=== PATIENT | female | born 1960 | race Caucasian/White ===

== ENCOUNTER 2016-05-05 14:00 | Emergency (ER) | payer MEDICAID ==
[~2016-05-05] VITALS: Ht 162.6 cm; Wt 57.2 kg
--- NOTE | 2016-05-05 14:00 | NUR ---
Patient was BIB [place] [employer] at this time.
[2016-05-05 14:04] VITALS: BP 155/94
--- NOTE | 2016-05-05 14:14 | NUR ---
Patient to bed 06.
--- NOTE | 2016-05-05 14:16 | NUR ---
DR. SUBRAMANIAN AT BEDSIDE
--- NOTE | 2016-05-05 14:17 | NUR ---
PREBOOK.WARRANT OF ARREST.NEED MEDICAL CLEARANCE.HX: HEP.C,ASTHMA . DENIES N/V/D; SKIN IS PINK/WARM/DRY; AAOX4 WITH EVEN AND STEADY GAIT; LUNGS CLEAR BL; HR EVEN AND REGULAR; PT DENIES ANY FEVER, CP, SOB, OR COUGH AT THIS TIME; PATIENT STATES PAIN OF 08/10 AT THIS TIME; PATIENT POSITIONED FOR COMFORT; HOB ELEVATED; BEDRAILS UP X2; BED DOWN.
--- NOTE | 2016-05-05 14:24 | NUR ---
PT VERBALIZED CAN I TALK TO THE DOCTOR AGAIN AND CHECK MY MOUTH, INFORMED DR. KELLY WANTS TO TALK TO HIM AGAIN.
--- NOTE | 2016-05-05 14:38 | NUR ---
PT BACK FROM XRAY VIA WHEELCHAIR, ASSISTED BY PD
[2016-05-05 15:08] VITALS: BP 155/94
--- NOTE | 2016-05-05 15:09 | NUR ---
Patient discharged with v/s stable. Written and verbal after care instructions given and explained. Patient verbalized understanding. Ambulatory with steady gait. All questions addressed prior to discharge. Advised to follow up with PMD.ASSISTED BY PD
== END 2016-05-05 15:09 ==
LOC: MED 14:13
DX: S20.211A Contusion of right front wall of thorax, initial encounter (principal); I10 Essential (primary) hypertension; F17.210 Nicotine dependence, cigarettes, uncomplicated; R19.7 Diarrhea, unspecified; R11.2 Nausea with vomiting, unspecified; J45.909 Unspecified asthma, uncomplicated; Z88.1 Allergy status to other antibiotic agents; X58.XXXA Exposure to other specified factors, initial encounter; Y93.89 Activity, other specified; Y92.89 Other specified places as the place of occurrence of the external cause; Y99.8 Other external cause status

== ENCOUNTER 2016-12-06 14:00 | Emergency (ER) | payer MEDICAID ==
[~2016-12-06] VITALS: Ht 160 cm; Wt 72.6 kg
--- NOTE | 2016-12-06 14:00 | NUR ---
Patient BIBA BLS, transferred to bed 4. RN evaluating patient at bedside.
--- NOTE | 2016-12-06 14:02 | NUR ---
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 NAD. WILL CONTINUE TO MONITOR.
[2016-12-06 14:06] VITALS: BP 142/94
--- NOTE | 2016-12-06 14:07 | NUR ---
Dr. Keen evaluating patient at bedside.
[2016-12-06] MEDS ORDERED: BACITRACIN OINT 500 UNITS/GM PKT TP ONE (14:10)
[2016-12-06] MEDS ORDERED: NACL 0.9% 2,000 ML IV ONE (14:10)
--- NOTE | 2016-12-06 14:54 | NUR ---
pt refused iv started; er md momin notified and aware
--- NOTE | 2016-12-06 15:09 | NUR ---
PT TO CT VIA RNEY ACCCOMPANIED BY CNC SERVICE ENGINEER
[2016-12-06 16:05] VITALS: BP 138/91
--- NOTE | 2016-12-06 16:05 | NUR ---
Patient discharged with v/s stable. Written and verbal after care instructions given and explained. Patient verbalized understanding. Pt given bus voucher and provided pt homeless resources packet. Pt verbalized understanding of homeless resources packet. Security by bedside to help pt with belongings; All belongings sent with pt. Pt verbalized that we give all belonging back; All questions addressed prior to discharge. Advised to follow up with PMD.
== END 2016-12-06 16:05 | disposition home or self-care (01) ==
LOC: MED 14:00
DX: S00.01XA Abrasion of scalp, initial encounter (principal); S80.211A Abrasion, right knee, initial encounter; F19.10 Other psychoactive substance abuse, uncomplicated; J45.909 Unspecified asthma, uncomplicated; I10 Essential (primary) hypertension; F17.210 Nicotine dependence, cigarettes, uncomplicated; Z71.6 Tobacco abuse counseling; Z88.1 Allergy status to other antibiotic agents; W19.XXXA Unspecified fall, initial encounter; Y93.89 Activity, other specified; Y92.89 Other specified places as the place of occurrence of the external cause; Y99.8 Other external cause status
CPT/HCPCS: 70450; 90471; 90715; 99284; J7030

== ENCOUNTER 2017-03-10 12:38 | Emergency (ER) | payer MEDICAID ==
[~2017-03-10] VITALS: Ht 162.6 cm; Wt 52.2 kg
[2017-03-10 12:42] VITALS: BP 170/92
--- NOTE | 2017-03-10 12:46 | NUR ---
PT PLACED IN OVERFLOW.
--- NOTE | 2017-03-10 12:53 | NUR ---
57 YO FEMALE [facility] FOR PREBOOK EXAM, AWAKE AND ALERT ABLE TO AMBULATE HS MULTIPLE MEDICAL COMPLAINTS, MOSTLY CHRONIC IN NATURE.
[2017-03-10 13:36] VITALS: BP 170/92
--- NOTE | 2017-03-10 13:37 | NUR ---
Patient discharged with v/s stable. Written and verbal after care instructions given and explained. Patient verbalized understanding. Police with in custody. All questions addressed prior to discharge. Advised to follow up with PMD.
== END 2017-03-10 13:37 | disposition home or self-care (01) ==
LOC: MED 12:38
DX: Z02.89 Encounter for other administrative examinations (principal); S42.001D Fracture of unspecified part of right clavicle, subsequent encounter for fracture with routine healing; M54.5 Low back pain; M25.511 Pain in right shoulder; J45.909 Unspecified asthma, uncomplicated; I10 Essential (primary) hypertension; Z88.1 Allergy status to other antibiotic agents; X58.XXXD Exposure to other specified factors, subsequent encounter
CPT/HCPCS: 99283